=== PATIENT | female | born 1960 | race Two or more races ===

== ENCOUNTER 2022-07-16 10:01 | Day surgery (SDC) | payer OTHER | END 2022-07-16 16:30 | disposition home or self-care (01) | LOC: AMB-ENDOS 10:01 | PROVIDERS: ATTEND Colon & Rectal Surgery | DX: K62.5 Hemorrhage of anus and rectum (principal); K64.8 Other hemorrhoids; R19.4 Change in bowel habit; Z20.822 Contact with and (suspected) exposure to COVID-19 ==